=== PATIENT | male | born 1975 | race Caucasian/White ===

== ENCOUNTER 2016-06-14 12:38 | Emergency (ER) | payer SELFPAY ==
[~2016-06-14] VITALS: Ht 172.7 cm; Wt 61.5 kg
[2016-06-14 12:46] VITALS: Ht 172.7 cm; Wt 61.5 kg
== END 2016-06-14 19:59 | disposition left against medical advice (07) ==
LOC: E/R 12:38
DX: Z53.21 Procedure and treatment not carried out due to patient leaving prior to being seen by health care provider (principal)

== ENCOUNTER 2016-10-12 15:08 | Emergency (ER) | payer OTHER ==
[~2016-10-12] VITALS: Ht 165.1 cm; Wt 60.0 kg
[2016-10-12 15:14] VITALS: Ht 165.1 cm; Wt 60.0 kg
--- NOTE | 2016-10-12 17:37 | ERD ---
ER Documentation Chief Complaint Date/Time DATE: 10/12/16 TIME: 17:34 Chief Complaint HEMATURIA TODAY, ABLE TO WALK HPI This is a 41-year-old male presenting to emergency department for hematuria starting today. Patient states he has intermittent dysuria and believes he has hematuria. Patient states urine is orange/red. Patient states he has had this problem intermittently and has had intermittent urinary incontinence for the past 6 months. Denies saddle anesthesia or back pain. No fevers or chills. Patient states he took Pyridium this morning and has been taking this medication on and off. Denies pelvic pain, urinary frequency or urinary urgency. No abdominal pain, nausea, vomiting or diarrhea. ROS All systems reviewed and are negative except as per history of present illness. Medications Home Meds Active Scripts Ciprofloxacin Hcl* (Ciprofloxacin Hcl*) 500 Mg Tablet, 500 MG PO BID for 3 Days , TAB Prov:VANCE GONZALEZSTEPHAN Villasenor NP 10/12/16 PMhx/Soc History of Surgery: Yes ( VASECTOMY) Anesthesia Reaction: No Hx Miscellaneous Medical Probl: Yes (DEPRESSION) Hx Alcohol Use: Yes Hx Substance Use: No Hx Tobacco Use: No Smoking Status: Never smoker Physical Exam Vitals Vital Signs Date Time Temp Pulse Resp B/P Pulse Ox O2 Delivery O2 Flow Rate FiO2 10/12/16 15:14 98.1 65 18 105/65 99 Physical Exam Const: No acute distress, alert Head: Atraumatic Eyes: Normal Conjunctiva ENT: Normal External Ears, Nose and Mouth. Neck: Full range of motion..~ No meningismus. Resp: Clear to auscultation bilaterally. No wheezing, rhonchi or crackles. Cardio: Regular rate and rhythm, no murmurs Abd: Soft, non tender, non distended. Normal bowel sounds Skin: No petechiae or rashes Back: No midline or flank tenderness. No CVA tenderness Ext: No cyanosis, or edema Neur: Awake and alert Psych: Normal Mood and Affect Results 24 hrs Laboratory Tests Test 10/12/16 17:00 Urine Color TONY Urine Clarity CLEAR Urine pH 5.0 Urine Specific [place] 1.024 Urine Ketones NEGATIVEmg/dL Urine Nitrite POSITIVEmg/dL Urine Bilirubin NEGATIVEmg/dL Urine Urobilinogen 1+mg/dL Urine Leukocyte Esterase NEGATIVELeu/ul Urine Microscopic RBC 1/HPF Urine Microscopic WBC 1/HPF Urine Squamous Epithelial Cells FEW/HPF Urine Mucus MANY/HPF Urine Hemoglobin NEGATIVEmg/dL Urine Glucose NEGATIVEmg/dL Urine Total Protein NEGATIVEmg/dl Procedures/MDM MDM: This is a 41-year-old male presenting to emergency department with hematuria and intermittent dysuria. Patient states he has urinary frequency and intermittent urinary incontinence for the past 6 months. Patient has been unable to see his primary care provider. Patient states he took Pyridium this morning. UA shows 1+ nitrate and 1+ urobilinogen. Negative leukocyte Estrace. Denies flank or back pain. No saddle anesthesia. Vital signs remained stable. No fevers or chills. Patient likely has a UTI. Low suspicion for pyelonephritis, nephrolithiasis or urinary obstruction. Patient is appropriate for outpatient management and will be given prescription for Cipro. Instructed patient to follow-up with primary care provider in next 2 -3 days for reassessment. Resources provided. Return to ED for any high fever , chest pain, difficulty breathing, shortness breath, wheezing, vomiting, diarrhea, abdominal pain or any new or worsening symptoms. Patient verbalizes understanding. All questions answered at discharge. Departure Diagnosis: Primary Impression: UTI (urinary tract infection) Urinary tract infection type: acute cystitis Hematuria presence: without hematuria Qualified Code: N30.00 - Acute cystitis without hematuria Condition: Stable OLEKSANDR GONZALEZ NP Oct 12, 2016 17:37
[2016-10-12 17:48] LABS: ADD UMIC YES; UR ASCORBIC ACID NEGATIVE (NEGATIVE); UR BILIRUBIN (Dip) NEGATIVE (NEGATIVE); UR BLOOD (Dip) NEGATIVE (NEGATIVE); UR CLARITY CLEAR (CLEAR); UR COLOR AMBER (YELLOW); UR GLUCOSE (Dip) NEGATIVE (NEGATIVE); UR KETONES (Dip) NEGATIVE (NEGATIVE); UR LEUKOCYTE ESTERASE (Dip) NEGATIVE Leu/ul (NEGATIVE); UR MUCUS MANY /HPF (NONE SEEN); UR NITRITE (Dip) POSITIVE (NEGATIVE); UR RBC 1 /HPF (0-5); UR SPECIFIC GRAVITY (Dip) 1.024 (1.003-1.030); UR SQUAMOUS EPITHELIAL CELL FEW /HPF (FEW); UR TOTAL PROTEIN (Dip) NEGATIVE (NEGATIVE); UR UROBILINOGEN (Dip) 1+ mg/dL (NEGATIVE)
[2016-10-12] MEDS ORDERED: CIPR500T4 PO (18:13)
== END 2016-10-12 18:40 | disposition home or self-care (01) ==
LOC: FTE 15:08
DX: N30.00 Acute cystitis without hematuria (principal)
CPT/HCPCS: 81001; Z7502; 99283